=== PATIENT | male | born 1990 | race Caucasian/White ===

== ENCOUNTER 2017-09-17 14:19 | Emergency (ER) | payer BC ==
[2017-09-17 14:30] VITALS: BP 147/91
--- NOTE | 2017-09-17 15:14 | ED ---
Throat Pain/Nasal Congestion - HPI Summary HPI Summary: Patient here with left eye irritation, watering, itchiness and goopy discharge the past 2 mornings. He has had conjunctivitis in the past and reports this feels the same. He is continue to wear his contact lenses despite this issue. No issues with his right eye. Denies double vision, blurry vision, headache, pain with eye movements, neck pain, neck stiffness, sore throat, fevers, chills , cough. He does admit to some mild nasal congestion which is been going on for a while now. 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 - History of Current Complaint Chief Complaint: UCEye Time Seen by Provider: 09/17/17 14:58 Hx Obtained From: Patient - Allergies/Home Medications Allergies/Adverse Reactions: Allergies Allergy/AdvReac Type Severity Reaction Status Date / Time cefaclor [From [facility]] Allergy Rash Verified 09/17/17 14:31 PMH/Surg Hx/FS Hx/Imm Hx Previously Healthy: Yes Endocrine/Hematology History: Denies: Hx Diabetes, Hx Thyroid Disease Cardiovascular History: Denies: Hx Hypertension Respiratory History: Reports: Hx Asthma Denies: Hx Chronic Obstructive Pulmonary Disease (COPD) GI History: Denies: Hx Ulcer Infectious Disease History: No Infectious Disease History: Denies: Hx Hepatitis, Hx Human Immunodeficiency Virus (HIV), Traveled Outside the [place] in Last 30 Days - Family History Known Family History: Positive: Hypertension - Social History Occupation: Employed Full-time Lives: With Family Alcohol Use: Occasionally Hx Substance Use: No Substance Use Type: Reports: None Hx Tobacco Use: No Smoking Status (MU): Never Smoked Tobacco Review of Systems Constitutional: Negative Negative: Fever, Chills, Fatigue Positive: Drainage, Erythema. Negative: Photophobia, Blurred Vision, Diplopia Negative: Sore Throat, Ear Ache, Nasal Discharge - congestion Cardiovascular: Negative Respiratory: Negative Gastrointestinal: Negative Positive: no symptoms reported Musculoskeletal: Negative Skin: Negative Neurological: Negative Psychological: Normal All Other Systems Reviewed And Are Negative: Yes Physical Exam Triage Information Reviewed: Yes Vital Signs On Initial Exam: Initial Vitals Temp Pulse Resp BP Pulse Ox 97.6 F 63 15 147/91 99 09/17/17 14:21 09/17/17 14:21 09/17/17 14:21 09/17/17 14:21 09/17/17 14:21 Vital Signs Reviewed: Yes Appearance: Positive: Well-Appearing, No Pain Distress, Well-Nourished Skin: Positive: Warm, Skin Color Reflects Adequate Perfusion, Dry - No rash overlying face, scalp Head/Face: Positive: Normal Head/Face Inspection Eyes: Positive: EOMI - No pain with movement, PEDRO - No photophobia, Conjunctiva Inflammed, Discharge - watery w/ scant purulent drainage in corner - no ulcerations, no lesions, no foreign body, Other: - Gross acuity intact ENT: Positive: Hearing grossly normal, Nasal congestion, TMs normal, Uvula midline. Negative: Pharyngeal erythema - Cobblestoning, Tonsillar swelling, Tonsillar exudate, Trismus, Muffled voice, Hoarse voice, Sinus tenderness Neck: Positive: Supple, Nontender, No Lymphadenopathy Respiratory/Lung Sounds: Positive: Clear to Auscultation, Breath Sounds Present Cardiovascular: Positive: Normal, RRR, S1, S2 Musculoskeletal: Positive: Normal, Strength/ROM Intact Neurological: Positive: Normal, Sensory/Motor Intact, Alert, Oriented to Person Place, Time, CN Intact II-III Psychiatric: Positive: Normal Diagnostics - Vital Signs Vital Signs Temp Pulse Resp BP Pulse Ox 09/17/17 14:21 97.6 F 63 15 147/91 99 - Laboratory Lab Statement: Any lab studies that have been ordered have been reviewed, and results considered in the medical decision making process. EENT Course/Dx - Course Course Of Treatment: Strongly urged pt to remove contact lenses and discard as well as contact container. Eye drops rx'd and urged he wear glasses until eyes heal. Danger s/sx reviewed w/ pt who agrees w/ plan. Also discussed risks of wearing contact lenses w/ infections to monitor now and for future issues. - Diagnoses Provider Diagnoses: Bacterial conjunctivitis of left eye Discharge - Sign-Out/Discharge Documenting (check all that apply): Discharge - Discharge Plan Condition: Stable Disposition: HOME Prescriptions: Ciprofloxacin 0.3% OPTH.PRABHA* [Cipro 0.3% Opth*] 2 drop LEFT EYE Q4H #1 btl Patient Education Materials: Conjunctivitis (ED) Referrals: Pedro Constantino MD [Medical Doctor] - Additional Instructions: Remove contact lenses and discard. Also discard your storage container. Keep contacts out of eyes for an additional 1 week after they appear to be healed. In the meantime, wear glasses and use antibiotic eyedrops as directed - 2 drops into eye every 2 hours while awake for the first 2 days then 2 drops into eye every 4 hours for the next 5 days. If symptoms persist or worsen, follow up with proposal specialist. Contact information provided here. * If you develop fevers, chills, photophobia, pain with eye movement, headache, difficulty breathing or swallowing, go to emergency department - Billing Disposition and Condition Condition: STABLE Disposition: HOME
== END 2017-09-17 15:19 | disposition home or self-care (01) ==
LOC: UCEAST 14:19
DX: H10.32 Unspecified acute conjunctivitis, left eye (principal); J45.909 Unspecified asthma, uncomplicated; Z88.1 Allergy status to other antibiotic agents
CPT/HCPCS: 99212; G0463